=== PATIENT | male | born 1980 ===

== ENCOUNTER 2016-10-07 00:19 | Emergency (ER) | payer MEDICAID, OTHER ==
[2016-10-07 00:19] VITALS: BMI 18.6
[2016-10-07 00:31] VITALS: BP 170/78; PULSE 57; RESP 16; TEMP 98.5; O2SAT 97
--- NOTE | 2016-10-07 01:23 | ED PDOC ---
HPI: General Adult Time Seen by Provider: 10/07/16 00:33 Chief Complaint (Nursing): Medical Clearance History Per: Patient Additional Complaint(s): Pt. was brought in by PD for medical/psychiatric clearance as pt. told them that he was bipolar. Denies SI/HI, hallucinations. Pt. offers no complaints at this time. Past Medical History Reviewed: Historical Data, Nursing Documentation, Vital Signs Vital Signs: Last Vital Signs Temp 98.5 F 10/07/16 00:29 Pulse 57 L 10/07/16 00:29 Resp 16 10/07/16 00:29 BP 170/78 H 10/07/16 00:29 Pulse Ox 97 10/07/16 00:29 - Medical History PMH: Anxiety, Bipolar Disorder, Depression Denies: Diabetes, Hepatitis, HIV, HTN, Chronic Kidney Disease, Seizures, Sexually Transmitted Disease - Surgical History Surgical History: Appendectomy - Family History Family History: States: No Known Family Hx - Immunization History Hx Tetanus Toxoid Vaccination: No Hx Influenza Vaccination: No (Unsure) Hx Pneumococcal Vaccination: No - Home Medications Home Medications: Ambulatory Orders Medication Instructions Recorded QUEtiapine [SEROquel] 150 mg PO HS #0 tab 01/13/16 Sertraline [Zoloft] 25 mg PO DAILY #0 tab 01/13/16 Divalproex [Depakote DR] 500 mg PO BID #60 tcp 03/13/16 Gabapentin [Neurontin] 100 mg PO TID #90 cap 03/13/16 QUEtiapine [Seroquel] 100 mg PO HS #30 tab 03/13/16 traZODone [Desyrel] 50 mg PO HS PRN #30 tab 03/13/16 Benztropine [Cogentin] 1 mg PO HS #30 tab 09/07/16 Divalproex [Depakote DR] 250 mg PO BID #60 tcp 09/07/16 risperiDONE [RisperDAL Tab] 1 mg PO HS #30 tab 09/07/16 traZODone [Desyrel] 100 mg PO HS PRN #30 tab 09/07/16 - Allergies Allergies/Adverse Reactions: Allergies Allergy/AdvReac Type Severity Reaction Status Date / Time No Known Allergies Allergy Verified 01/13/16 17:07 Review of Systems ROS Statement: Except As Marked, All Systems Reviewed And Found Negative Physical Exam - Reviewed Nursing Documentation Reviewed: Yes Vital Signs Reviewed: Yes - Physical Exam Appears: Positive for: Well, Non-toxic, No Acute Distress Head Exam: Positive for: ATRAUMATIC, NORMAL INSPECTION, NORMOCEPHALIC Skin: Positive for: Normal Color, Warm. Negative for: Rash Eye Exam: Positive for: EOMI, Normal appearance, PERRL ENT: Positive for: Normal ENT Inspection Neck: Positive for: Normal, Painless ROM Cardiovascular/Chest: Positive for: Regular Rate, Rhythm Respiratory: Positive for: CNT, Normal Breath Sounds Gastrointestinal/Abdominal: Positive for: Normal Exam, Soft. Negative for: Tenderness Back: Positive for: Normal Inspection Extremity: Positive for: Normal ROM Neurologic/Psych: Positive for: Alert, Oriented, Mood/Affect (calm and cooperative). Negative for: Aphasia, Facial Droop - ECG O2 Sat by Pulse Oximetry: 97 - Progress ED Course And Treament: Pt. evaluated by [facility] color drum worker, who spoke with Dr. Hall and cleared pt. for incarceration. Disposition - Clinical Impression Clinical Impression: Bipolar disorder - Patient ED Disposition Is Patient to be Admitted: No - Disposition Disposition: Routine/Home Disposition Time: 01:23 Condition: STABLE Additional Instructions: Patient is medically and psychiatrically cleared for incarceration. Instructions: Normal Exam (ED)
== END 2016-10-07 01:48 ==
LOC: H.ER 00:19
DX: F31.9 Bipolar disorder, unspecified (principal); F41.9 Anxiety disorder, unspecified

== ENCOUNTER 2016-12-22 18:29 | Emergency (ER) | payer MEDICAID, OTHER ==
[2016-12-22 18:30] VITALS: BMI 18.6
[2016-12-22 18:38] VITALS: BP 126/72; PULSE 84; RESP 18; TEMP 97.9; O2SAT 98
--- NOTE | 2016-12-22 19:29 | ED PDOC ---
Lower Extremity Pain/Injury Time Seen by Provider: 12/22/16 19:04 Chief Complaint (Nursing): Lower Extremity Problem/Injury Chief Complaint (Provider): Medical Clearance for Incarceration History Per: Patient History/Exam Limitations: no limitations Additional Complaint(s): Declan Win, a 36 year old female, who has past medical history of bipolar disorder is brought in to the ED for medical clearance for incarceration . The patient states that he currently has a broken toe(first toe NTP) on his right foot. He states that it i spainful but no very different from when he first sustained the injury and was seen at [facility] (formerly [facility]). Denies nay other medical complaints. Denies Homicidal ideation/Suicidal ideation ideation. Past Medical History Reviewed: Historical Data, Nursing Documentation, Vital Signs Vital Signs: Last Vital Signs Temp 97.9 F 12/22/16 18:35 Pulse 84 12/22/16 18:35 Resp 18 12/22/16 18:35 BP 126/72 12/22/16 18:35 Pulse Ox 98 12/22/16 18:35 - Medical History PMH: Anxiety, Bipolar Disorder, Depression Denies: Diabetes, Hepatitis, HIV, HTN, Chronic Kidney Disease, Seizures, Sexually Transmitted Disease - Surgical History Surgical History: Appendectomy - Family History Family History: States: Unknown Family Hx - Immunization History Hx Tetanus Toxoid Vaccination: No Hx Influenza Vaccination: No (Unsure) Hx Pneumococcal Vaccination: No - Home Medications Home Medications: Ambulatory Orders Medication Instructions Recorded Acetaminophen with Codeine 1 each PO Q6 PRN #15 tablet 12/08/16 [Tylenol with Codeine #3 Tablet] Cyclobenzaprine [Cyclobenzaprine 10 mg PO Q8 PRN #20 tab 12/08/16 HCl] QUEtiapine [Seroquel] 100 mg PO BID 12/08/16 - Allergies Allergies/Adverse Reactions: Allergies Allergy/AdvReac Type Severity Reaction Status Date / Time No Known Allergies Allergy Verified 01/13/16 17:07 Review of Systems Musculoskeletal: Positive for: Other (Broken toe on right foot) Physical Exam - Reviewed Nursing Documentation Reviewed: Yes Vital Signs Reviewed: Yes - Physical Exam Appears: Positive for: Non-toxic, No Acute Distress Head Exam: Positive for: ATRAUMATIC, NORMAL INSPECTION, NORMOCEPHALIC Skin: Positive for: Normal Color, Warm, Dry Eye Exam: Positive for: Normal appearance, EOMI, PERRL ENT: Positive for: Normal ENT Inspection Neck: Positive for: Normal, Painless ROM, Supple Cardiovascular/Chest: Positive for: Regular Rate, Rhythm, Chest Non Tender. Negative for: Tachycardia Respiratory: Positive for: Normal Breath Sounds. Negative for: Wheezing, Respiratory Distress Gastrointestinal/Abdominal: Positive for: Normal Exam, Bowel Sounds, Soft. Negative for: Tenderness, Mass, Guarding, Rebound Back: Positive for: Normal Inspection. Negative for: L CVA Tenderness, R CVA Tenderness Extremity: Positive for: Normal ROM, Swelling (mild swelling to first toe on right). Negative for: Tenderness, Calf Tenderness, Deformity Neurologic/Psych: Positive for: Alert, Oriented, Gait. Negative for: Motor/ Sensory Deficits, Facial Droop - ECG O2 Sat by Pulse Oximetry: 98 (RA) Pulse Ox Interpretation: Normal Medical Decision Making Medical Decision Makin Initial Impression: 36 year old male presenting for medical clearance and a broken toe Initial Plan: * Crisis Evaluation * Reevaluation 1936 Patient is medically cleared for discharge. Scribe Attestation Documented by Jaquelin Lechuga acting as a scribe for Romy Montiel PA-C. Scribe Attestation All medical record entries made by the Scribe were at my direction and personally dictated by me. I have reviewed the chart and agree that the record accurately reflects my personal performance of the history, physical exam, medical decision making, and the department course for this patient. I have also personally directed, reviewed, and agree with the discharge instructions and disposition. Disposition - Disposition Forms: [employer] (Australian)
== END 2016-12-22 20:43 ==
LOC: H.ER 18:29
DX: F31.9 Bipolar disorder, unspecified (principal)

== ENCOUNTER 2017-08-16 20:41 | Inpatient (IN) | payer MEDICAID, OTHER ==
[2017-08-16 20:41] VITALS: BMI 18.6
--- NOTE | 2017-08-16 22:36 | ED PDOC ---
HPI: Psych/Substance Abuse Time Seen by Provider: 08/16/17 21:06 Chief Complaint (Nursing): Psychiatric Evaluation Chief Complaint (Provider): Depression, anxiety History Per: Patient History/Exam Limitations: no limitations Onset/Duration Of Symptoms: Days Current Symptoms Are (Timing): Still Present Suicide/Self Injury Attempted (Context): None Additional Complaint(s): 37 yo male with history of bipolar presents with increase of anxiety and depression. Pt states he feels like he is suffocating. Pt reports taking medications for his bipolar everyday. Pt reports hearing voices telling him is a "piece of shit". Pt reports cocaine and marijuana 3 days ago. Past Medical History Reviewed: Historical Data, Nursing Documentation, Vital Signs Vital Signs: Last Vital Signs Temp 98.6 F 08/16/17 21:08 Pulse 81 08/16/17 21:08 Resp 16 08/16/17 21:08 BP 137/70 08/16/17 21:08 Pulse Ox 97 08/16/17 21:08 - Medical History PMH: Anxiety, Bipolar Disorder, Depression, Schizophrenia (undiagnosed, patient claims he is) Denies: Diabetes, Hepatitis, HIV, HTN, Chronic Kidney Disease, Seizures, Sexually Transmitted Disease - Surgical History Surgical History: Appendectomy - Family History Family History: States: Unknown Family Hx - Living Arrangements Living Arrangements: With Family (Mother) - Social History Current smoker - smoking cessation education provided: No Alcohol: Occasional Drugs: Cannabis, Cocaine - Immunization History Hx Tetanus Toxoid Vaccination: No Hx Influenza Vaccination: No (Unsure) Hx Pneumococcal Vaccination: No - Home Medications Home Medications: Ambulatory Orders Medication Instructions Recorded QUEtiapine [Seroquel] 100 mg PO BID 12/08/16 Sertraline [Zoloft] 25 mg PO DAILY 05/19/17 QUEtiapine [SEROquel] 200 mg PO HS #30 tab 05/24/17 - Allergies Allergies/Adverse Reactions: Allergies Allergy/AdvReac Type Severity Reaction Status Date / Time No Known Allergies Allergy Verified 08/16/17 09:57 Physical Exam - Reviewed Nursing Documentation Reviewed: Yes Vital Signs Reviewed: Yes - Physical Exam Appears: Positive for: Well, Non-toxic, No Acute Distress Head Exam: Positive for: ATRAUMATIC, NORMAL INSPECTION, NORMOCEPHALIC Skin: Positive for: Normal Color, Warm, DRY Eye Exam: Positive for: Normal appearance ENT: Positive for: Normal ENT Inspection Neck: Positive for: Normal, Painless ROM Cardiovascular/Chest: Positive for: Regular Rate, Rhythm Respiratory: Positive for: CNT, Normal Breath Sounds Back: Positive for: Normal Inspection Extremity: Positive for: Normal ROM Neurologic/Psych: Positive for: Alert, Oriented - Laboratory Results Result Diagrams: 08/16/17 22:30 08/16/17 22:30 - ECG O2 Sat by Pulse Oximetry: 97 Medical Decision Making Medical Decision Making: Crisis evaluation completed. Disposition - Clinical Impression Clinical Impression: Depression - Patient ED Disposition Is Patient to be Admitted: No - Disposition Referrals: FAMILY PROVIDER,NO [Primary Care Provider] - Disposition: Routine/Home Disposition Time: 23:04 Condition: STABLE Instructions: Depression Forms: [facility] (Gambian)
[2017-08-16 22:38] LABS: HEMOGLOBIN 13.6 g/dL (12.0-18.0); MEAN CELL VOLUME 92.6 fl (80.0-94.0); MEAN CORPUSCULAR HGB CONC 33.5 g/dL (33.0-37.0); RBC 4.38 Mil/uL (4.40-5.90); WHITE BLOOD COUNT 7.2 K/uL (4.8-10.8)
[2017-08-16 22:51] LABS: ALB/GLOB RATIO 1.5 (1.0-2.1); ALBUMIN 3.9 g/dL (3.5-5.0); ALT/SGPT 51 U/L (21-72); AST/SGOT 71 U/L (17-59); BLOOD UREA NITROGEN 19 mg/dl (9-20); CALCIUM 9.4 mg/dL (8.4-10.2); GFR AFRICAN-AMERICAN > 60; GFR NON-AFRICAN AMERICAN > 60; URINE BILIRUBIN NEGATIVE (NEGATIVE); URINE BLOOD NEGATIVE (NEGATIVE); URINE CLARITY CLEAR (Clear); URINE COLOR COLORLESS (YELLOW); URINE GLUCOSE (UA) NEG (Normal); URINE LEUKOCYTE ESTERASE NEG Leu/uL (Negative); URINE PROTEIN NEGATIVE (NEGATIVE); URINE UROBILINOGEN 0.2-1.0 mg/dL (0.2-1.0)
[2017-08-16 23:43] LABS: BARBITURATES, UR NEGATIVE (NEGATIVE); BENZODIAZEPINES, UR NEGATIVE (NEGATIVE); OPIATES, UR NEGATIVE (NEGATIVE); PHENCYCLIDINE, UR NEGATIVE (NEGATIVE)
[2017-08-17 00:31] VITALS: O2SAT 99
[2017-08-17] MEDS ORDERED: Magnesium Hydroxide Susp 30 ml UD PO PRN (00:36)
[2017-08-17] MEDS ORDERED: Alum-Mag Hydrox-Simethicone Susp (30 mL) PO PRN (00:36)
[2017-08-17] MEDS ORDERED: DiphenhydrAMINE 50 mg/ml Inj IM PRN (00:36)
--- NOTE | 2017-08-17 00:45 | PCM.BM ---
<BlazeTatiana Jono - Last Filed: 08/17/17 00:43> Treatment Plan Problems - Problems identified on initial assessmt Hopelessness/ Helplessness Date Initiated: 08/17/17 Time Initiated: 00:44 Assessment reference: NA Status: Active Treatment assets and liabiliti Patient Assests: adapts well, cooperative, ADL independent, physically healthy, negotiates basic needs, cognitively intact Patient Liabilities: substance abuse - Milieu Protocol Maintain good personal hygiene: daily Encourage regular showers, every shift Remind patient to perform daily oral care Conduct patient checks and document Observation sheet: Q15 minutes Maintain personal safety: every shift Educate patient to report safety concerns to staff, every shift Monitor environment for contraband/sharps Medication safety: Monitor for expected outcome, potential side effects: every shift, Assess barriers to learning: every shift, Assess readiness for medication education: every shift <Omi Raygoza - Last Filed: 08/19/17 12:04> Family Contact Family involvement: Family/SO is involved Family contact: Patient agrees to contact, Family has been contacted by patient , Telephone contact initiated by staff Family contact name: Gina (Mother - [phone]) Family contacted how many times per week?: 3 Family contact comment: Pt's mother reported that pt has been depressed, anxious , and nervous prior to hospitalization. She is very concerned with his chronic substance use and feels that he requires long-term substance abuse treatment. - Goals for Treatment Patient goals for treatment: Pt would like to be referred to a medical terminologist substance abuse program as he knows that he will be unable to remain sober if he is to return home to [place]. pt would also like help establishing achievable goals and medication to help his thoughts organize. Patient's family/SO goals for treatment: Pt's mother would like pt to be admitted to a lont-term substance abuse program. Discharge/Continuing Care - Education Needs Education Needs: Patient Medication, Patient Diagnosis/Disease Process, Patient Coping Skills, Patient Anger Management skills, Patient Placement options, Patient Community resources, Patient Aftercare Safety Plan - Discharge Discharge Criteria: Tolerates medication w/o severe side effects, Free of agitation, Normal sleep pattern, No longer exhibiting s/s of withdrawal, Reduction of target symptoms Discharge to:: Home, With Family, Substance Abuse Rehab - Treatment Team Participation Discussed with Family/SO: Yes Was Patient/Family/SO present at Treatment Team Meeting: Yes <ElanaBlanca heaton - Last Filed: 08/20/17 13:07> Discharge/Continuing Care - Treatment Team Participation Patient/Family/SO Statement: 08/20/17 13:08 Patient attended tx team this morning and was able to engage in discussion regarding precursors to hospitalization and tx goals. Pt. reports recent worsening in lability in mood, impulsivity and intrusive negative thoughts. Pt. expressed always having trouble controlling emotions. Pt. anxious but cooperative and pleasant. Speech: somewhat pressured. Thoughts clear and connected. Pt. expressed feeling grateful and real gianfranco to have strong family supports (primarily mother) and confirmed that he is able to return home upon d/c. Pt. currently requesting to have referrals to inpatient substance abuse tx programs initiated. Pt. aware that it is not guaranteed that a bed will be secured prior to discharge and is agreeable to referrals to OPS and following up with referrals independently upon d/c. Pt. future oriented, expressing goals to find part-time work upon d/c. Pt. continues to minimize substance abuse but is receptive to feedback. Medication management discussed at length. <Bobbi Jarrell - Last Filed: 08/22/17 13:00> - Diagnosis (1) Depression Status: Acute Interventions: psychotherapy, pharmacotherapy 08/22/17 13:00
[2017-08-17 08:07] LABS: T4 5.61 ug/dl (5.5-11.0)
--- NOTE | 2017-08-17 08:18 | RAD ---
HISTORY: admission COMPARISON: No prior. FINDINGS: LUNGS: No active pulmonary disease. PLEURA: No significant pleural effusion identified, no pneumothorax apparent. CARDIOVASCULAR: Normal. OSSEOUS STRUCTURES: No significant abnormalities. VISUALIZED UPPER ABDOMEN: Normal. OTHER FINDINGS: None. IMPRESSION: No acute cardiopulmonary disease appreciated.
--- NOTE | 2017-08-17 11:19 | CARD ---
APPROVED REPORT EKG Measurement Heart [id number] <Conclusion> Normal sinus rhythm Normal ECG
--- NOTE | 2017-08-17 18:36 | CP.PCM.CON ---
History of Present Illness - History of Present Illness History of Present Illness: 27 y/o male with PMH bipolar disorder came to ER with racing thoughts and feeling anxious. He states that is compliant with his medications. As per patient he has had bipolar disorder for all his life. Denies hallucinations or suicidal attempt . Denies any CP or SOB , sob, palpitations, PND , orthopnea, urinary symptoms or changes in bowel movements. At present appears restless and prefers not to talk any longer Allergies :NKDA PMH:bipolar, anxiety , depression Medications; seroquel Surgery : appendectomy Family history :None Social history; lives with mother in [place],smokes > 10 cigg/day , denies ETOH abuse ,uses cocaine and weed sometime ROS ;10 point review of system negative except above Review of Systems - Review of Systems All systems: reviewed and no additional remarkable complaints except Past Patient History - Infectious Disease Hx of Infectious Diseases: None - Past Social History Smoking Status: Heavy Smoker > 10 Cigarettes Daily Drugs: Cannabis, Cocaine Home Situation {Lives}: With Family - CARDIAC Hx Cardiac Disorders: No Hx Hypertension: No - PULMONARY Hx Respiratory Disorders: No Hx Tuberculosis: No - NEUROLOGICAL Hx Neurological Disorder: No Hx Seizures: No - HEENT Hx HEENT Problems: No - RENAL Hx Chronic Kidney Disease: No - ENDOCRINE/METABOLIC Hx Endocrine Disorders: No - HEMATOLOGICAL/ONCOLOGICAL Hx Blood Disorders: No Hx Human Immunodeficiency Virus (HIV): No - INTEGUMENTARY Hx Dermatological Problems: No Hx Psoriasis: Yes - MUSCULOSKELETAL/RHEUMATOLOGICAL Hx Musculoskeletal Disorders: Yes - GASTROINTESTINAL Hx Gastrointestinal Disorders: No - GENITOURINARY/GYNECOLOGICAL Hx Genitourinary Disorders: No Hx Sexually Transmitted Disorders: No - PSYCHIATRIC Hx Substance Use: Yes (cocaine marijuana) - SURGICAL HISTORY Hx Appendectomy: Yes - ANESTHESIA Hx Anesthesia: Yes Hx Anesthesia Reactions: No Hx Malignant Hyperthermia: No Meds Allergies/Adverse Reactions: Allergies Allergy/AdvReac Type Severity Reaction Status Date / Time No Known Allergies Allergy Verified 08/16/17 09:57 - Medications Medications: Current Medications Acetaminophen (Tylenol 325mg Tab) 650 mg PO Q4 PRN PRN Reason: Pain, moderate (4-7) Al Hydrox/Mg Hydrox/Simethicone (Maalox Plus 30 Ml) 30 ml PO Q4 PRN PRN Reason: Dyspepsia Diphenhydramine HCl (Benadryl) 50 mg IM Q6 PRN PRN Reason: Extrapyramidal S/S Unable PO Diphenhydramine HCl (Benadryl) 50 mg PO Q6 PRN PRN Reason: Extrapyramidal Symptoms Diphenhydramine HCl (Benadryl) 50 mg PO HS PRN PRN Reason: Sleep Haloperidol (Haldol) 5 mg PO Q4 PRN PRN Reason: Agitation Haloperidol Lactate (Haldol) 5 mg IM Q4 PRN PRN Reason: Agitation, Unable to Take PO Hydroxyzine Pamoate (Vistaril) 50 mg PO Q8 PRN PRN Reason: Anxiety Lorazepam (Ativan) 2 mg IM Q4 PRN PRN Reason: Anxiety/Agitation,Unable PO Magnesium Hydroxide (Milk Of Magnesia) 30 ml PO HS PRN PRN Reason: Constipation Quetiapine Fumarate (Seroquel) 200 mg PO HS RENEE Quetiapine Fumarate (Seroquel) 50 mg PO BID [facility] Last Admin: 08/17/17 17:37 Dose: 50 mg Physical Exam - Constitutional Appears: Non-toxic, No Acute Distress, Cachectic Additional comments: restless - Head Exam Head Exam: ATRAUMATIC, NORMAL INSPECTION, NORMOCEPHALIC - Eye Exam Eye Exam: EOMI, PERRL Pupil Exam: NORMAL ACCOMODATION - ENT Exam ENT Exam: Mucous Membranes Moist, Normal Exam - Neck Exam Neck exam: Positive for: Full Rom, Normal Inspection - Respiratory Exam Respiratory Exam: Clear to Auscultation Bilateral, NORMAL BREATHING PATTERN. absent: Rales, Rhonchi, Wheezes - Cardiovascular Exam Cardiovascular Exam: REGULAR RHYTHM, RRR, +S1, +S2. absent: JVD - GI/Abdominal Exam GI & Abdominal Exam: Normal Bowel Sounds, Soft. absent: Distended, Guarding, Rebound, Tenderness - Rectal Exam Rectal Exam: Deferred - Extremities Exam Extremities exam: Positive for: normal capillary refill, normal inspection, pedal pulses present. Negative for: calf tenderness, pedal edema - Back Exam Back exam: NORMAL INSPECTION - Neurological Exam Neurological exam: Alert, CN II-XII Intact - Psychiatric Exam Psychiatric exam: Agitated, Anxious, Flat Affect - Skin Skin Exam: Dry, Intact, Normal Color, Warm Results - Vital Signs Recent Vital Signs: Last Vital Signs Temp 98.2 F 08/17/17 16:51 Pulse 60 08/17/17 16:51 Resp 19 04/13/18 16:51 BP 116/70 08/17/17 16:51 Pulse Ox 99 08/17/17 00:29 - Labs Result Diagrams: 08/16/17 22:30 08/16/17 22:30 Labs: Laboratory Results - last 24 hr 08/16/17 08/16/17 08/16/17 22:30 22:30 22:30 WBC 7.2 RBC 4.38 L Hgb 13.6 Hct 40.5 MCV 92.6 D MCH 31.0 MCHC 33.5 RDW 14.0 Plt Count 260 Sodium 142 Potassium 3.7 Chloride 100 Carbon Dioxide 27 Anion Gap 19 BUN 19 Creatinine 0.9 Est GFR ( Amer) > 60 Est GFR (Non-Af Amer) > 60 Random Glucose 121 H Hemoglobin A1c Calcium 9.4 Total Bilirubin 0.5 AST 71 H D ALT 51 Alkaline Phosphatase 53 Total Protein 6.6 Albumin 3.9 Globulin 2.7 Albumin/Globulin Ratio 1.5 Triglycerides Cholesterol LDL Cholesterol Direct HDL Cholesterol Thyroxine (T4) TSH 3rd Generation Urine Color Urine Clarity Urine pH Ur Specific [place] Urine Protein Urine Glucose (UA) Urine Ketones Urine Blood Urine Nitrate Urine Bilirubin Urine Urobilinogen Ur Leukocyte Esterase Urine RBC (Auto) Urine Opiates Screen Negative Urine Methadone Screen Negative Ur Barbiturates Screen Negative Ur Phencyclidine Scrn Negative Ur Amphetamines Screen Negative U Benzodiazepines Scrn Negative U Oth Cocaine Metabols Positive H U Cannabinoids Screen Positive H Alcohol, Quantitative < 10 RPR 08/16/17 08/17/17 08/17/17 22:30 07:29 07:29 WBC RBC Hgb Hct MCV MCH MCHC RDW Plt Count Sodium Potassium Chloride Carbon Dioxide Anion Gap BUN Creatinine Est GFR ( Amer) Est GFR (Non-Af Amer) Random Glucose Hemoglobin A1c 5.2 Calcium Total Bilirubin AST ALT Alkaline Phosphatase Total Protein Albumin Globulin Albumin/Globulin Ratio Triglycerides 103 Cholesterol 196 LDL Cholesterol Direct 84 HDL Cholesterol 88 H Thyroxine (T4) 5.61 TSH 3rd Generation 1.21 Urine Color Colorless Urine Clarity Clear Urine pH 7.0 Ur Specific [place] < 1.005 Urine Protein Negative Urine Glucose (UA) Neg Urine Ketones Negative Urine Blood Negative Urine Nitrate Negative Urine Bilirubin Negative Urine Urobilinogen 0.2-1.0 Ur Leukocyte Esterase Neg Urine RBC (Auto) < 1 Urine Opiates Screen Urine Methadone Screen Ur Barbiturates Screen Ur Phencyclidine Scrn Ur Amphetamines Screen U Benzodiazepines Scrn U Oth Cocaine Metabols U Cannabinoids Screen Alcohol, Quantitative RPR 08/17/17 07:29 WBC RBC Hgb Hct MCV MCH MCHC RDW Plt Count Sodium Potassium Chloride Carbon Dioxide Anion Gap BUN Creatinine Est GFR ( Amer) Est GFR (Non-Af Amer) Random Glucose Hemoglobin A1c Calcium Total Bilirubin AST ALT Alkaline Phosphatase Total Protein Albumin Globulin Albumin/Globulin Ratio Triglycerides Cholesterol LDL Cholesterol Direct HDL Cholesterol Thyroxine (T4) TSH 3rd Generation Urine Color Urine Clarity Urine pH Ur Specific [place] Urine Protein Urine Glucose (UA) Urine Ketones Urine Blood Urine Nitrate Urine Bilirubin Urine Urobilinogen Ur Leukocyte Esterase Urine RBC (Auto) Urine Opiates Screen Urine Methadone Screen Ur Barbiturates Screen Ur Phencyclidine Scrn Ur Amphetamines Screen U Benzodiazepines Scrn U Oth Cocaine Metabols U Cannabinoids Screen Alcohol, Quantitative RPR Nonreactive Assessment & Plan - Assessment and Plan (Free Text) Assessment: 27 y/o male with PMH bipolar disorder came to ER with racing thoughts and feeling anxious. He states that is compliant with his medications. As per patient he has had bipolar disorder for all his life. Denies hallucinations or suicidal attempt . Denies any CP or SOB , sob, palpitations, PND , orthopnea, urinary symptoms or changes in bowel movements. At present appears restless and prefers not to talk any longer 1. Bipolar disorder management as per psych 2. Tobacco use disorder nicotine patch offered 3. Polysubstance abuse
--- NOTE | 2017-08-18 15:21 | PCM.PYCHPN ---
Psychiatric Progress Note - Psychiatric Progress Note Patient seen today, length of contact: pt evaluated discussed with team chart reviewed Patient Chief Complaint: I am tired Problems Identified/Issues Discussed: pt evaluated in bed, unkempt, uncooperative, irritable, reported by staff to have episodes of verbal agitation pt continues to report no command auditory hallucinations, limited insight into substance use denied any current suicidal or homicidal ideations denied side effects of medications DSM 5 Symptoms Update: schizoaffective disorder' cannabis use disorder cocaine use disorder Medication Change: Yes Medical Record Reviewed: Yes Mental Status Examination - Cognitive Function Orientation: Person, Place Memory: Intact Attention: Poor Concentration: Poor Association: WNL Fund of Knowledge: Poor Decription of patient's judgement and insights: poor insight and judgment - Mood Mood: Depressed, Anxious - Affect Affect: Constricted - Speech Speech: Loud - Formal Thought Process Formal Thought Process: Hallucinations, Paranoia, Circumstantial Psychotic Thoughts and Behaviors: pt reported non command auditory hallucinations - Suicidal Ideation Suicidal Ideation: No - Homicidal Ideation Homicidal Ideation: No Goal/Treatment Plan - Goal/Treatment Plan Need for Continued Stay: Severe depression anxiety, Discharge may exacerbated symptoms Progress Toward Problem(s) and Goals/Treatment Plan: seroquel 300mg qhs and 50mg bid group, motivationa, and supportive therapy Estimated Date of D/C: 08/24/17
--- NOTE | 2017-08-19 14:26 | PCM.PYCHPN ---
Psychiatric Progress Note - Psychiatric Progress Note Patient seen today, length of contact: pt evaluated discussed with team chart reviewed Patient Chief Complaint: I am not feeling well Problems Identified/Issues Discussed: pt evaluated in bed, unkempt, not attending to personal hygiene , angry, irritable, , uncooperative, limited speech reported feeling anxious and depressed discussed with pt starting neurontin for anxiety, motivational therapy provided for substance use, encouraged pt to participate in treatment pt denied any current suicidal or homicidal ideations , denied command hallucinations, denied side effects of medications DSM 5 Symptoms Update: bipolar disorder cocaine use disorder cannabis use disorder Medication Change: Yes (start neurontin) Medical Record Reviewed: Yes Mental Status Examination - Cognitive Function Orientation: Person, Place Memory: Intact Attention: Poor Concentration: Poor Association: WNL Fund of Knowledge: Poor Decription of patient's judgement and insights: poor insight and judgment - Mood Mood: Depressed, Anxious - Affect Affect: Constricted - Speech Speech: Loud - Formal Thought Process Formal Thought Process: Hallucinations, Paranoia, Circumstantial Psychotic Thoughts and Behaviors: pt reported non command auditory hallucinations - Suicidal Ideation Suicidal Ideation: No - Homicidal Ideation Homicidal Ideation: No Goal/Treatment Plan - Goal/Treatment Plan Need for Continued Stay: Severe depression anxiety, Discharge may exacerbated symptoms Progress Toward Problem(s) and Goals/Treatment Plan: seroquel 300mg qhs and 50mg bid, neurontin 100mg tid group, motivational, and supportive therapy Estimated Date of D/C: 08/24/17
--- NOTE | 2017-08-20 15:42 | PCM.PYCHPN ---
Psychiatric Progress Note - Psychiatric Progress Note Patient seen today, length of contact: pt evaluated discussed with team chart reviewed Patient Chief Complaint: I have been always hyperactive Problems Identified/Issues Discussed: pt evaluated with treatment team, less guarded, more cooperative, pt reported continues to feel depressed and irritable, discussed with pt increasing dose of seroquel and starting trileptal as mood stabilize pt agreed to join [facility] on discharge with senior care goal of joining [facility] pt denied any current suicidal or homicidal ideations , denied command hallucinations, denied side effects of medications DSM 5 Symptoms Update: bipolar disorder cocaine use disorder cannabis use disorder Medication Change: Yes (start trileptal) Medical Record Reviewed: Yes Mental Status Examination - Cognitive Function Orientation: Person, Place Memory: Intact Attention: Poor Concentration: Poor Association: WNL Fund of Knowledge: Poor Decription of patient's judgement and insights: poor insight and judgment - Mood Mood: Depressed, Anxious - Affect Affect: Constricted - Speech Speech: Loud - Formal Thought Process Formal Thought Process: Hallucinations, Circumstantial Psychotic Thoughts and Behaviors: pt reported non command auditory hallucinations - Suicidal Ideation Suicidal Ideation: No - Homicidal Ideation Homicidal Ideation: No Goal/Treatment Plan - Goal/Treatment Plan Need for Continued Stay: Severe depression anxiety, Discharge may exacerbated symptoms Progress Toward Problem(s) and Goals/Treatment Plan: seroquel 300mg qhs and 50mg bid, discontinue neurontin start trileptal 150mg bid with plan to uptitrate group, motivational, and supportive therapy Estimated Date of D/C: 08/24/17
--- NOTE | 2017-08-21 15:04 | PCM.PYCHPN ---
Psychiatric Progress Note - Psychiatric Progress Note Patient seen today, length of contact: pt evaluated discussed with team chart reviewed Patient Chief Complaint: I am feeling better today Problems Identified/Issues Discussed: pt evaluated , reported better mood, brighter affect, less anxious, stated feeling better with trileptal, thought form more gaol directed pt denied any current suicidal or homicidal ideations , denied command hallucinations, denied side effects of medications DSM 5 Symptoms Update: bipolar disorder cocaine use disorder cannabis use disorder Medication Change: No Medical Record Reviewed: Yes Mental Status Examination - Cognitive Function Orientation: Person, Place Memory: Intact Attention: WNL Concentration: WNL Association: WNL Fund of Knowledge: Poor Decription of patient's judgement and insights: poor insight and judgment - Mood Mood: Depressed, Anxious - Affect Affect: Constricted - Speech Speech: Loud - Formal Thought Process Formal Thought Process: Hallucinations, Circumstantial Psychotic Thoughts and Behaviors: pt reported clearing off of the auditory hallucinations - Suicidal Ideation Suicidal Ideation: No - Homicidal Ideation Homicidal Ideation: No Goal/Treatment Plan - Goal/Treatment Plan Need for Continued Stay: Severe depression anxiety, Discharge may exacerbated symptoms Progress Toward Problem(s) and Goals/Treatment Plan: seroquel 300mg qhs and 50mg bid, start trileptal 150mg bid group, motivational, and supportive therapy Estimated Date of D/C: 08/24/17
[2017-08-22 09:10] VITALS: BP 135/95; PULSE 69; RESP 18; TEMP 96.8
--- NOTE | 2017-08-22 14:01 | PCM.PYCHDC ---
Mental Status Examination - Mental Status Examination Orientation: Person, Place, Situation Memory: Intact Mood: Neutral Affect: Broad Speech: Appropriate Attention: WNL Concentration: WNL Fund of Knowledge: WNL Formal Thought Process: No Impairment Description of patient's judgement and insight: poor insight and judgment Psychotic Thoughts and Behaviors: pt denied perceptual disturbances on discharge, non elicited Suicidal Ideation: No Current Homicidal Ideation?: No Discharge Summary - Discharge Note Reason for Hospitalization: pt requested help pt is 37ys old male with previous diagnosis of bipoalr disorder, cocaine and cannabis abuse, questionable compliance with medications, pt reportedly has not seen his psychiatrisrt for two months , started feeling increasingly depressed he also relapsed on cannabis and cocaine, pt started experiencing auditory hallucinations putting him down, pt started experiencing suicidal ideations, came to ER seeking help pt reports passive suicidal ideations without plan on unit , non command auditory hallucinations, denied Consultations:: List each consultation separately and include: 1. Reason for request. 2. Findings. 3. Follow-up Summary of Hospital Course include:: 1. Description of specific treatment plan utilized for patients during their course of treatmen. 2. Summarize the time- course for resolution of acute symptoms and/or regressed behaviors. 3. Describe issues identified and worked on during hospitalization. 4. Describe medication utilized. 5. Describe medical problems identified and treated. 6. Reassessment of suicide risk Summary of Hospital Course: pt was started on seroquel it was uptitrated to 400mg daily neurontin for anxiety, and trileptal for mood stabilization motivational and supportive therapy provided pt on discharge mental status was stable, denied any current suicidal or homicidal ideations, denied perceptual disturbances, no reported side effects of medications pt will follow up at inpatient rehab [facility] - Final Diagnosis (DSM 5) Condition upon Discharge: STABLE DSM 5: SCHIZOAFFECTIVE DISORDER BIPOLAR TYPE cannabis use disorder cocaine use disorder Disposition: HOME/ ROUTINE Follow-up Treatment Plan: seroquel 300mg qhs and 50mg bid, start trileptal 150mg bid group, motivational, and supportive therapy Prescriptions/Medication Reconciliation: OXcarbazepine [Trileptal] 150 mg PO BID 30 Days #60 tab QUEtiapine [SEROquel] 300 mg PO HS 30 Days #30 tab QUEtiapine [SEROquel] 50 mg PO BID 30 Days #60 tab - Antipsychotic Medications Pt discharged on 2 or more routine antipsychotic medications: No
== END 2017-08-22 11:20 | disposition home or self-care (01) | DRG 430 ==
LOC: H.ER 20:41 → SUPCPDRO 20:41 → H.ERHOLD 23:27 → H.PSYCH 08-17 00:30
PROVIDERS: ADMIT Psychiatry & Neurology Psychiatry; ATTEND Psychiatry & Neurology Psychiatry
PROC: GZHZZZZ Group Psychotherapy (ICD-10-PCS; principal; 2017-08-16)
PROC: HZ57ZZZ Individual Psychotherapy for Substance Abuse Treatment, Motivational Enhancement (ICD-10-PCS; 2017-08-16)
PROC: HZ59ZZZ Individual Psychotherapy for Substance Abuse Treatment, Supportive (ICD-10-PCS; 2017-08-16)
DX: F25.0 Schizoaffective disorder, bipolar type (principal); F14.90 Cocaine use, unspecified, uncomplicated; R45.851 Suicidal ideations; F12.90 Cannabis use, unspecified, uncomplicated; Z72.0 Tobacco use; F41.9 Anxiety disorder, unspecified

== ENCOUNTER 2018-02-18 17:06 | Emergency (ER) | payer MEDICAID, OTHER ==
[2018-02-18 17:06] VITALS: BMI 19.5
[2018-02-18 17:14] VITALS: RESP 16; TEMP 98
[2018-02-18 20:49] VITALS: BP 126/59; PULSE 87
[2018-02-18 20:50] VITALS: O2SAT 99
--- NOTE | 2018-02-18 20:50 | ED PDOC ---
HPI: Psych/Substance Abuse Time Seen by Provider: 02/18/18 17:27 Chief Complaint (Nursing): Psychiatric Evaluation Chief Complaint (Provider): Anxiety History Per: Patient History/Exam Limitations: no limitations Onset/Duration Of Symptoms: Days (3) Current Symptoms Are (Timing): Still Present Additional Complaint(s): Pt reporting anxiety and having "psych problems" Just discharged from [facility] psychiatric unit today. He reports he was discharged because he was angry about the staff behavior. He denies suicidal or homicidal ideation. Reports hearing voices. He has been taking his medications for the last 3 days. Past Medical History Reviewed: Historical Data, Nursing Documentation, Vital Signs Vital Signs: Last Vital Signs Temp 98 F 02/18/18 17:10 Pulse 101 H 02/18/18 17:10 Resp 16 02/18/18 17:10 BP 118/62 02/18/18 17:10 Pulse Ox 99 02/18/18 17:10 - Medical History PMH: Anxiety, Bipolar Disorder, Depression, Schizophrenia Denies: Diabetes, Hepatitis, HIV, HTN, Chronic Kidney Disease, Seizures, Sexually Transmitted Disease - Surgical History Surgical History: Appendectomy - Family History Family History: States: Unknown Family Hx - Social History Current smoker - smoking cessation education provided: Yes Drugs: Denies, Cannabis - Immunization History Hx Tetanus Toxoid Vaccination: No Hx Influenza Vaccination: No (Unsure) Hx Pneumococcal Vaccination: No - Home Medications Home Medications: Ambulatory Orders Medication Instructions Recorded OXcarbazepine [Trileptal] 150 mg PO BID 30 Days #60 tab 08/22/17 QUEtiapine [SEROquel] 50 mg PO BID 30 Days #60 tab 08/22/17 QUEtiapine [SEROquel] 300 mg PO HS 30 Days #30 tab 08/22/17 Benztropine [Benztropine Mesylate] 1 mg PO BID #6 tab 12/10/17 Gabapentin [Neurontin] 300 mg PO TID #60 cap 12/10/17 QUEtiapine [Seroquel] 100 mg PO HS #30 tab 12/10/17 fluPHENAZine [Prolixin] 5 mg PO BID #60 tab 12/10/17 - Allergies Allergies/Adverse Reactions: Allergies Allergy/AdvReac Type Severity Reaction Status Date / Time No Known Allergies Allergy Verified 02/18/18 17:09 Review of Systems ROS Statement: Except As Marked, All Systems Reviewed And Found Negative Psych: Positive for: Anxiety, Depression. Negative for: Suicidal ideation Physical Exam - Reviewed Nursing Documentation Reviewed: Yes Vital Signs Reviewed: Yes - Physical Exam Appears: Positive for: Non-toxic, No Acute Distress Head Exam: Positive for: ATRAUMATIC, NORMOCEPHALIC Skin: Positive for: Warm, Dry Eye Exam: Positive for: EOMI, PERRL ENT: Negative for: Pharyngeal Erythema, Tonsillar Exudate Neck: Positive for: Painless ROM, Supple Cardiovascular/Chest: Positive for: Regular Rate, Rhythm, Chest Non Tender. Negative for: Murmur Respiratory: Positive for: Normal Breath Sounds. Negative for: Wheezing Gastrointestinal/Abdominal: Positive for: Soft. Negative for: Tenderness Back: Positive for: Normal Inspection. Negative for: Decreased ROM Extremity: Positive for: Normal ROM. Negative for: Deformity Lymphatic: Negative for: Adenopathy Neurologic/Psych: Positive for: Alert. Negative for: Motor/Sensory Deficits - ECG O2 Sat by Pulse Oximetry: 99 Medical Decision Making Medical Decision Making: Evaluated by RINKU Hall. Stable for dc. Disposition - Clinical Impression Clinical Impression: Substance abuse, Schizoaffective disorder - Disposition Referrals: Community Mental Health [Outside] Disposition: Routine/Home Disposition Time: 20:30 Condition: STABLE Instructions: Schizoaffective Disorder
== END 2018-02-18 20:49 | disposition home or self-care (01) ==
LOC: H.ER 17:06
DX: F19.10 Other psychoactive substance abuse, uncomplicated (principal); F25.9 Schizoaffective disorder, unspecified; F17.200 Nicotine dependence, unspecified, uncomplicated; F31.9 Bipolar disorder, unspecified; F41.9 Anxiety disorder, unspecified

== ENCOUNTER 2018-02-21 12:03 | Inpatient (IN) | payer OTHER ==
[2018-02-21 12:20] VITALS: O2SAT 99
--- NOTE | 2018-02-21 12:38 | ED PDOC ---
HPI: Psych/Substance Abuse Time Seen by Provider: 02/21/18 12:30 Chief Complaint (Nursing): Psychiatric Evaluation Chief Complaint (Provider): Psychiatric Evaluation History Per: Patient History/Exam Limitations: no limitations Current Symptoms Are (Timing): Still Present Additional Complaint(s): 38 year old male with a hx of schizoaffective disorder presents to the ED seeking psychiatric admission. He states that he is on seroquil and was recently started on a new medicine that the name of he is unable to recall. Currently, he reports wanting to be admitted for racing thoughts and feeling angry at the world associated with fleeting suicidal thoughts. He is currently under the care of a psychiatrist in [facility], pending arrangements for therapy. Otherwise denies homicidal ideation and physical complaints. PMD: in [place] Past Medical History Reviewed: Historical Data, Nursing Documentation, Vital Signs Vital Signs: Last Vital Signs Temp 98.9 F 02/21/18 12:17 Pulse 88 02/21/18 12:17 Resp 18 02/21/18 12:17 BP 105/70 02/21/18 12:17 Pulse Ox 99 02/21/18 12:17 - Medical History PMH: Anxiety, Bipolar Disorder, Depression, Schizophrenia Denies: Diabetes, Hepatitis, HIV, HTN, Chronic Kidney Disease, Seizures, Sexually Transmitted Disease - Surgical History Surgical History: Appendectomy - Family History Family History: States: Unknown Family Hx - Social History Current smoker - smoking cessation education provided: Yes (light) Alcohol: Social Drugs: Cannabis - Immunization History Hx Tetanus Toxoid Vaccination: No Hx Influenza Vaccination: No (Unsure) Hx Pneumococcal Vaccination: No - Home Medications Home Medications: Ambulatory Orders Medication Instructions Recorded QUEtiapine [SEROquel] 300 mg PO HS 30 Days #30 tab 08/22/17 Benztropine [Benztropine Mesylate] 1 mg PO BID #6 tab 12/10/17 Gabapentin [Neurontin] 300 mg PO TID #60 cap 12/10/17 OXcarbazepine [Trileptal] 150 mg PO Q12 02/21/18 QUEtiapine [SEROquel] 50 mg PO DAILY 02/21/18 fluPHENAZine [Prolixin] 5 mg PO Q12 02/21/18 - Allergies Allergies/Adverse Reactions: Allergies Allergy/AdvReac Type Severity Reaction Status Date / Time No Known Allergies Allergy Verified 02/18/18 17:09 Review of Systems ROS Statement: Except As Marked, All Systems Reviewed And Found Negative Psych: Positive for: Suicidal ideation (but no homicidal), Other (racing thoughts, angry with world) Physical Exam - Reviewed Nursing Documentation Reviewed: Yes Vital Signs Reviewed: Yes - Physical Exam Appears: Positive for: No Acute Distress Head Exam: Positive for: ATRAUMATIC, NORMOCEPHALIC Skin: Positive for: Normal Color. Negative for: Rash Eye Exam: Positive for: Normal appearance ENT: Positive for: Normal ENT Inspection Neck: Positive for: Normal, Painless ROM, Supple Cardiovascular/Chest: Positive for: Regular Rate, Rhythm Respiratory: Positive for: Normal Breath Sounds. Negative for: Respiratory Distress Gastrointestinal/Abdominal: Positive for: Normal Exam, Soft. Negative for: Tenderness Extremity: Positive for: Normal ROM Neurologic/Psych: Positive for: Alert, Oriented (3), Mood/Affect (anxious appearing but otherwise coherent) - Laboratory Results Result Diagrams: 02/21/18 13:20 02/21/18 13:20 - ECG ECG: Positive for: Interpreted By Me, Viewed By Me ECG Rhythm: Positive for: Normal ST Segment, Sinus Rhythm (normal at 65 bpm). Negative for: ST/T Changes O2 Sat by Pulse Oximetry: 99 (RA) Pulse Ox Interpretation: Normal Medical Decision Making Medical Decision Making: Time: 1242 Initial Impression: psych eval Initial Plan: --Alcohol serum --CMP --Drug screen --CBC with differential --Urinalysis 1247 Crisis consult at bedside. 1309 Pt evaluated by demolition worker who spoke with Dr. Jarrell who states pt is to be admitted under his care for schizoaffective disorder. 1415 Multiple rbcs noted in urine sample, probable UTI. Urine culture sent out and will start patient on cipro. Scribe Attestation: Documented by Dayana Neal, acting as a scribe for Lee Ramirez PA-C. Provider Scribe Attestation: All medical record entries made by the Scribe were at my direction and personally dictated by me. I have reviewed the chart and agree that the record accurately reflects my personal performance of the history, physical exam, medical decision making, and the department course for this patient. I have also personally directed, reviewed, and agree with the discharge instructions and disposition. Disposition - Clinical Impression Clinical Impression: Schizoaffective disorder - Patient ED Disposition Is Patient to be Admitted: Yes - Disposition Disposition Time: 14:10 Condition: STABLE - Pt Status Changed To: Hospital Disposition Of: Inpatient - Admit Certification Admit to Inpatient:: After my assessment, the patient will require hospitalization for at least two midnights. This is because of the severity of symptoms shown, intensity of services needed, and/or the medical risk in this patient being treated as an outpatient.
[2018-02-21 13:37] LABS: BASO # 0.1 K/uL (0.0-0.2); BASO % 1.2 % (0.0-2.0); EOS # 0.1 K/uL (0.0-0.7); EOS % 1.4 % (0.0-4.0); HEMOGLOBIN 14.6 g/dL (12.0-18.0); LYMPH # 1.5 K/uL (1.0-4.3); LYMPH % 18.8 % (20.0-40.0); MEAN CELL VOLUME 92.9 fl (80.0-94.0); MEAN CORPUSCULAR HEMOGLOBIN 31.2 pg (27.0-31.0); MEAN CORPUSCULAR HGB CONC 33.6 g/dL (33.0-37.0); MEAN PLATELET VOLUME 8.6 fl (7.2-11.7); MONO # 0.7 K/uL (0.0-0.8); MONO % 8.7 % (0.0-10.0); NEUT # 5.6 K/uL (1.8-7.0); NEUT % 69.9 % (50.0-75.0); RBC 4.69 Mil/uL (4.40-5.90); RED CELL DISTRIBUTION WIDTH 13.8 % (11.5-14.5); WHITE BLOOD COUNT 8.1 K/uL (4.8-10.8)
[2018-02-21 13:46] LABS: SQUAMOUS EPITHIAL < 1 /hpf (0-5); URINE BILIRUBIN NEGATIVE (NEGATIVE); URINE BLOOD MODERATE (NEGATIVE); URINE CLARITY CLEAR (Clear); URINE GLUCOSE (UA) NEG (Normal); URINE LEUKOCYTE ESTERASE NEG Leu/uL (Negative); URINE PROTEIN NEGATIVE (NEGATIVE); URINE UROBILINOGEN 0.2-1.0 mg/dL (0.2-1.0)
[2018-02-21 13:47] LABS: ALB/GLOB RATIO 1.4 (1.0-2.1); ALBUMIN 4.6 g/dL (3.5-5.0); ALT/SGPT 54 U/L (21-72); AST/SGOT 49 U/L (17-59); BLOOD UREA NITROGEN 23 mg/dl (9-20); CALCIUM 9.6 mg/dL (8.4-10.2); GFR NON-AFRICAN AMERICAN > 60
[2018-02-21 13:48] LABS: URINE COLOR YELLOW (YELLOW)
[2018-02-21 13:55] LABS: OPIATES, UR NEGATIVE (NEGATIVE)
[2018-02-21 13:57] LABS: BARBITURATES, UR NEGATIVE (NEGATIVE); BENZODIAZEPINES, UR NEGATIVE (NEGATIVE); PHENCYCLIDINE, UR NEGATIVE (NEGATIVE)
--- NOTE | 2018-02-21 14:52 | RAD ---
Date of service: 02/21/2018 HISTORY: injury COMPARISON: 08/16/2017 FINDINGS: LUNGS: No active pulmonary disease. PLEURA: No significant pleural effusion identified, no pneumothorax apparent. CARDIOVASCULAR: No atherosclerotic calcification present Normal. OSSEOUS STRUCTURES: No significant abnormalities. VISUALIZED UPPER ABDOMEN: Normal. OTHER FINDINGS: None. IMPRESSION: No active disease.
[2018-02-21] MEDS ORDERED: Alum-Mag Hydrox-Simethicone Susp (30 mL) PO PRN (16:06)
[2018-02-21] MEDS ORDERED: DiphenhydrAMINE 50 mg/ml Inj IM PRN (16:06)
[2018-02-21] MEDS ORDERED: Magnesium Hydroxide Susp 30 ml UD PO PRN (16:06)
[2018-02-21 16:52] VITALS: RESP 18
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
[2018-02-21] MEDS ORDERED: Pneumococcal 23-Valent Vaccine IM ONE (17:35)
--- NOTE | 2018-02-22 06:23 | CARD ---
APPROVED REPORT Date of service: 02/21/2018 EKG Measurement Heart [id number] <Conclusion> Normal sinus rhythm Normal ECG
[2018-02-22 08:43] LABS: T4 4.26 ug/dl (5.5-11.0)
[2018-02-22] MEDS ORDERED: Influenza Vaccine (5 YR UP)/PF 60 MCG/0.5 ML SYR IM ONE (09:00)
[2018-02-22] MEDS ORDERED: Pneumococcal 23-Valent Vaccine IM ONE (09:30)
[2018-02-22] MEDS ORDERED: Divalproex 500 mg DR(BID formulation) PO ONE (12:00)
[2018-02-22 12:28] VITALS: BMI 17.4
--- NOTE | 2018-02-22 14:26 | PCM.PSYCH ---
Initial Psychiatric Evaluation - Initial Psychiatric Evaluation Type of Admission: Voluntary Legal Status: Capacity Chief Complaint (in patient's own words): I have racing thoughts and I want to hurt myself History of Present Illness and Precipitating Events: pt is 38ys old male with previous diagnosis of schizoaffective disorder and cannabis use, pt presented to ER due to having suicidal ideation and paranoid delusions pt has not been compliant with his medications, relapsed on cocaine and cannabis, started to experience auditory hallucinations putting him down , pt also was having paranoid delusions feeling that people are after him , wants to hurt him, reported racing thoughts poor sleep and poor appetite , on day of evaluation started having suicidal thoughts on the unit pt continues to have passive suicidal ideation without plan, edgy labile and irritable denied command hallucinations denied homicidal ideation Current Medications: Active Medications Generic Name Dose Route Start Last Admin Trade Name Freq PRN Reason Stop Dose Admin Acetaminophen 650 mg 02/21/18 16:06 Tylenol 325mg Tab PO Q4 PRN Pain, Mild (1-3) Al Hydrox/Mg Hydrox/Simethicone 30 ml 02/21/18 16:06 Maalox Plus 30 Ml PO Q4 PRN Dyspepsia Ciprofloxacin 250 mg 02/21/18 14:00 02/22/18 09:10 Cipro PO 02/23/18 21:00 250 mg Q12 RENEE Administration Protocol Diphenhydramine HCl 50 mg 02/21/18 16:06 Benadryl IM Q6 PRN Extrapyramidal S/S Unable PO Diphenhydramine HCl 50 mg 02/21/18 16:15 Benadryl PO HS PRN Sleep Diphenhydramine HCl 50 mg 02/21/18 16:16 Benadryl PO Q6 PRN Eps/Dystonic Divalproex Sodium 500 mg 02/23/18 09:00 Javier Torrez(*Bid*) PO DAILY RENEE Divalproex Sodium 500 mg 02/22/18 22:00 Javier Torrez(*Bid*) PO HS RENEE Haloperidol 5 mg 02/21/18 16:06 Haldol PO Q4 PRN Agitation Haloperidol Lactate 5 mg 02/21/18 16:06 Haldol IM Q4 PRN Agitation, Unable to Take PO Hydroxyzine Pamoate 50 mg 02/21/18 16:27 Vistaril PO Q6 PRN Anxiety Lorazepam 2 mg 02/21/18 16:06 Ativan IM Q4 PRN Anxiety/Agitation,Unable PO Lorazepam 1 mg 02/21/18 16:17 Ativan PO Q8 PRN Anxiety Magnesium Hydroxide 30 ml 02/21/18 16:06 Milk Of Magnesia PO HS PRN Constipation Quetiapine Fumarate 300 mg 02/21/18 22:00 02/21/18 21:24 Seroquel PO 300 mg HS RENEE Administration Quetiapine Fumarate 50 mg 02/21/18 17:00 02/22/18 09:10 Seroquel PO 50 mg BID RENEE Administration Past Psychiatric History - Past Psychiatric History Explanation of prior treatment: multiple hospitalizations, hx of non compliance History of ETOH/Drug Use: hx of cocaine and cannabis use Pertinent Medical Hx (Current Medical&Sleep Prob, Allergies): Allergies Allergy/AdvReac Type Severity Reaction Status Date / Time No Known Allergies Allergy Verified 02/18/18 17:09 QUEtiapine [SEROquel] 300 mg PO HS 30 Days #30 tab 08/22/17 Benztropine [Benztropine Mesylate] 1 mg PO BID #6 tab 12/10/17 Gabapentin [Neurontin] 300 mg PO TID #60 cap 12/10/17 OXcarbazepine [Trileptal] 150 mg PO Q12 02/21/18 QUEtiapine [SEROquel] 50 mg PO DAILY 02/21/18 fluPHENAZine [Prolixin] 5 mg PO Q12 02/21/18 Mental Status Examination - Personal Presentation Personal Presentation: Looks older than stated age Additional comments: underweight, disheveled, - Affect Affect: Constricted, Depressed - Motor Activity Motor Activity: Psychomotor Agitation - Reliability in Providing Information Reliability in Providing Information: Poor, due to alteration in thoughts, Poor, due to altered mood - Speech Speech: Tangential - Mood Mood: Depressed, Anxious - Formal Thought Process Formal Thought Process: Hallucinations, Paranoia, Circumstantial - Hallucinations/Delusions Hallucinations: Auditory - Obsessions/Compulsions Obsessions: No Compulsions: No - Cognitive Functions Orientation: Person, Place Sensorium: Alert Attention/Concentration: Easily distracted Abstract Thinking: [place] Judgement: Imparied, as evidence by: Poor judgement, Imparied, as evidence by: Lack of insight into illness - Risk Risk: Suicidal, Withdrawal, Diminished functioning - Strength & Assets Inventory Strength & Assets Inventory: Family support - Limitations Additional comments: poor cpmpliance DSM 5 DX - DSM 5 DSM 5 Diagnosis: schizoaffective disorder cocaine abuse cannabis abuse - Recommended/Plan of Treatment Treatment Recommendations and Plan of Treatment: start seroquel 50mg bid and 300mg qhs start depakote 500mg bid 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
[2018-02-22] MEDS: Divalproex 500 mg DR(BID formulation) PO SCH (21:03)
[2018-02-23] MEDS: Divalproex 500 mg DR(BID formulation) PO SCH ×2 (09:03→21:31)
[2018-02-24] MEDS: Divalproex 500 mg DR(BID formulation) PO SCH ×2 (11:39→21:12)
--- NOTE | 2018-02-24 12:22 | PCM.PYCHPN ---
Psychiatric Progress Note - Psychiatric Progress Note Patient seen today, length of contact: pt seen and evaluated. Patient Chief Complaint: pt has been still paranoid and internally preoccupied and still depressed and withdrawn.pt remains with poor insight and need further stabilization. Medication Change: No Medical Record Reviewed: Yes Mental Status Examination - Cognitive Function Orientation: Person, Place Memory: Intact Attention: Poor Concentration: Poor Association: WNL Fund of Knowledge: WNL - Mood Mood: Depressed, Anxious - Affect Affect: Constricted, Depressed - Formal Thought Process Formal Thought Process: Hallucinations, Paranoia, Circumstantial - Homicidal Ideation Homicidal Ideation: No Goal/Treatment Plan - Goal/Treatment Plan Progress Toward Problem(s) and Goals/Treatment Plan: will continue to titrate seroquel and depakote to stabilize psychosis and mood and check VPA level and engage pt in therapy Disposition as per dr ceron.
[2018-02-25 09:06] VITALS: BP 128/82; PULSE 75; TEMP 97.2
[2018-02-25] MEDS: Divalproex 500 mg DR(BID formulation) PO SCH (09:11)
--- NOTE | 2018-02-25 11:34 | PCM.PYCHDC ---
Mental Status Examination - Mental Status Examination Orientation: Person, Place, Situation Memory: Intact Mood: Neutral Affect: Broad Speech: Appropriate Attention: WNL Concentration: WNL Association: WNL Fund of Knowledge: WNL Formal Thought Process: Circumstantial Description of patient's judgement and insight: partial insight fair judgment Psychotic Thoughts and Behaviors: pt denied any current psychotic symptoms, non elicited Suicidal Ideation: No Current Homicidal Ideation?: No Discharge Summary - Discharge Note Reason for Hospitalization: pt is 38ys old male with previous diagnosis of schizoaffective disorder and cannabis use, pt presented to ER due to having suicidal ideation and paranoid delusions pt has not been compliant with his medications, relapsed on cocaine and cannabis, started to experience auditory hallucinations putting him down , pt also was having paranoid delusions feeling that people are after him , wants to hurt him, reported racing thoughts poor sleep and poor appetite , on day of evaluation started having suicidal thoughts on the unit pt continues to have passive suicidal ideation without plan, edgy labile and irritable denied command hallucinations denied homicidal ideation Consultations:: List each consultation separately and include: 1. Reason for request. 2. Findings. 3. Follow-up Summary of Hospital Course include:: 1. Description of specific treatment plan utilized for patients during their course of treatmen. 2. Summarize the time- course for resolution of acute symptoms and/or regressed behaviors. 3. Describe issues identified and worked on during hospitalization. 4. Describe medication utilized. 5. Describe medical problems identified and treated. 6. Reassessment of suicide risk Summary of Hospital Course: pt on admission presented with labile affect, edginess , irritability, auditory hallucinations and suicidal ideation pt was placed on seroquel it was increased to 400mg pt was laso placed on depakpte 1000mg motivational therapy was provided in reference to cocaine and cannabis use pt was compliant with treatment, attended groups, no reported side effects of medications on discharge mental status was stable, pt denied any current suicidal or homicidal ideation, denied perceptual disturbances follow up arranged for inpatient rehab - Diagnosis (1) Cocaine abuse Current Visit: No Status: Acute - Final Diagnosis (DSM 5) Condition upon Discharge: STABLE DSM 5: bipolar disorder mixed severe cocaine use disorder cannabis use disorder Disposition: HOME/ ROUTINE Follow-up Treatment Plan: start seroquel 50mg bid and 300mg qhs start depakote 500mg bid 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
== END 2018-02-25 12:15 | disposition home or self-care (01) | DRG 430 ==
LOC: H.ER 12:03 → H.ERHOLD 14:10 → H.PSYCH 15:05
PROVIDERS: ADMIT Psychiatry & Neurology Psychiatry; ATTEND Psychiatry & Neurology Psychiatry
PROC: GZ58ZZZ Individual Psychotherapy, Cognitive-Behavioral (ICD-10-PCS; principal; 2018-02-21)
DX: F31.63 Bipolar disorder, current episode mixed, severe, without psychotic features (principal); F14.10 Cocaine abuse, uncomplicated; F25.9 Schizoaffective disorder, unspecified; F12.10 Cannabis abuse, uncomplicated; F17.200 Nicotine dependence, unspecified, uncomplicated; R45.851 Suicidal ideations; Z91.14 Patient's other noncompliance with medication regimen; Z91.19 Patient's noncompliance with other medical treatment and regimen; F41.9 Anxiety disorder, unspecified; Z79.899 Other long term (current) drug therapy